=== PATIENT | female | born 1935 | race Caucasian/White ===

== ENCOUNTER 2018-10-15 17:14 | Observation (INO) | payer MEDICARE, BC ==
[2018-10-15] MEDS ORDERED: hydrALAZINE 20 MG/ML VIAL ONE (17:46)
[2018-10-15 18:25] LABS: Troponin I Less than 0.010 ng/mL (< 0.028)
[2018-10-15 21:20] LABS: Troponin I Less than 0.010 ng/mL (< 0.028)
[2018-10-15 21:24] VITALS: BMI 25.6
[2018-10-15] MEDS ORDERED: Ondansetron PF 4 MG/2 ML Vial IVP PRN (21:39)
[2018-10-15] MEDS ORDERED: Acetaminophen 650 MG Suppository PR PRN (21:39)
[2018-10-15] MEDS ORDERED: Acetaminophen 325 MG TAB PO PRN (21:39)
[2018-10-15] MEDS ORDERED: Ondansetron ODT 4 MG TAB PO PRN (21:39)
[2018-10-15 23:28] LABS: Troponin I Less than 0.010 ng/mL (< 0.028)
[2018-10-15] MEDS ORDERED: Gabapentin 300 MG CAP PO SCH (23:30)
[2018-10-15] MEDS ORDERED: Metoprolol Tartrate 50 MG TAB PO SCH (23:30)
[2018-10-16 05:44] LABS: #Basophils 0.1 thou/uL (0.0-0.2); #Eosinphils 0.1 thou/uL (0.0-0.7); #Lymphocytes 1.7 thou/uL (1.20-3.40); #Monocytes 0.7 thou/uL (0.11-0.59); #Neutrophils 4.2 thou/uL (1.40-6.50); %Eosinophils 1.3 % (0.0-10.0); %Lymphocytes 25.3 % (21.0-51.0); %Monocytes 10.9 % (0.0-10.0); %Neutrophils 61.5 % (42.0-75.0); Mean Corpuscular HGB CONC 32.9 g/dL (32.0-36.0); Mean Corpuscular Hemoglobin 30.1 pg (27.0-31.0); Mean Corpuscular Volume 91.7 fL (78.0-98.0); Mean Platelet Volume 9.4 fL (7.4-10.4); Platelet Count 245 thou/uL (130-400); RBC Distribution Width 13.5 % (11.5-14.5); Red Blood Cell (RBC) Count 3.66 mill/uL (4.20-5.40); White Blood Cell (WBC) Count 6.8 thou/uL (4.8-10.8)
[2018-10-16 06:10] LABS: Anion Gap 9 mmol/L (10-20); BUN (Urea Nitrogen) 27 mg/dL (9.8-20.1); Calc. Creatinine Clearance 38 mL/min (70-130); Calcium 8.5 mg/dL (7.8-10.44); Carbon Dioxide 27 mmol/L (23-31); Chloride 106 mmol/L (98-107); Estimated GFR-MDRD 42; Glucose 87 mg/dL (83-110); Potassium 4.3 mmol/L (3.5-5.1)
[2018-10-16 06:13] LABS: Sodium 138 mmol/L (136-145)
--- NOTE | 2018-10-16 08:00 | HP ---
PRIMARY CARE PHYSICIAN: Dr. Brian Varela. CODE STATUS: Full code. TIME OF EVALUATION: 8:45. CHIEF COMPLAINT: Chest pain. HISTORY OF PRESENT ILLNESS: An 83-year-old female patient with past medical history of lung cancer, kidney cancer, status post radiation and surgery, last treated in 2011, hyperlipidemia, hypertension, came to the hospital after having chest pain that was on and off with no clear triggers, no alleviating factors. The patient reported the pain radiates to the left arm, hand, symptoms were reported as 6/ 10. No significant associated symptoms. REVIEW OF SYSTEMS: CONSTITUTIONAL: No fever, chills, or generalized weakness. RESPIRATORY: No cough, sputum production, or shortness of breath. CARDIOVASCULAR: The patient has chest pain. No palpitation. GASTROINTESTINAL: No nausea, vomiting, or diarrhea or abdominal pain. CHEMICAL ENGINEERING TECHNICIAN: No dizziness, headache, or feeling lightheaded. GENITOURINARY: No burning on urination. EXTREMITIES: No leg swelling. All other systems were reviewed and negative except for the findings mentioned above. PAST MEDICAL HISTORY: As mentioned in HPI. PAST SURGICAL HISTORY: The patient has back surgery x2, appendectomy, hysterectomy; mastectomy, both breast. PSYCHIATRIC HISTORY: Depression. FAMILY HISTORY: Reviewed, noncontributory to current presentation. SOCIAL HISTORY: The patient quit smoking less than 10 years ago. No alcohol. No drug use. KNOWN ALLERGIES: Aspirin. REPORTED MEDICATIONS: 1. Caduet. 2. Lasix. 3. Metoprolol. 4. Platte. 5. Sertraline. 6. Neurontin. PHYSICAL EXAMINATION: VITAL SIGNS: On presentation, blood pressure 206/92, heart rate 63, respiratory rate was 18, temperature 97.6, pain 0/10, oxygen saturation was 96% on room air. GENERAL APPEARANCE: The patient is alert, oriented, not in acute distress. HEENT: Eyes, normal conjunctivae. Moist oral mucosa. Anicteric. No JVD. RESPIRATORY: Bilateral air entry. No rales. No wheezes. Symmetric expansion. CARDIOVASCULAR: Normal rate. Regular rhythm. No murmurs. No gallop. No edema. ABDOMEN: Soft. Normal bowel sounds. MUSCULOSKELETAL: Baseline range of motion and . SKIN: Warm. Intact. No pallor. No rash. No redness. Capillary refill seems to be intact. NEURO: No evidence of any new focal weakness. Cranial nerves seem to be intact. PSYCH: The patient is in good mood. No anxiety. Optimal judgment. LABORATORY DATA: EKG was reviewed. The patient has sinus bradycardia at the rate of 58 with VA 140, QRS 70, QT corrected 424. Chest x-ray was reviewed. The patient has fracture on the right 6th through 9th ribs, which are probably subacute. These were not present on prior study. Old left humeral neck injury. Apparent fracture of the medial left clavicle which is not clearly visible on the prior studies since the recent CT of the cervical spine showed a piece of this area and suggested some bony sclerosis and perhaps expansion. Further workup on this study was advised, CT of the region will be useful. Labs were reviewed. The patient has white count 7.1, hemoglobin 11.8, MCV 92.3, platelet count 287. PT 13.4, INR 1.0, PTT 31.4. D-dimer 0.52. Sodium 141, potassium 5, chloride 103, carbon dioxide 27, anion gap 16, BUN 27, creatinine 1.42. On previous admissions, the creatinine was 1.82. The GFR is 36, glucose 95. LFTs were negative. Troponin was negative. Lipase 37. Urine was negative. ASSESSMENT AND PLAN: The patient will be placed in the hospital for following medical problems: 1. Chest pain, rule out acute coronary syndrome. The patient has some rib fractures. The pain may be secondary to these fractures, however, there is only concern for underlying coronary artery disease in a patient with risk factors. We will monitor. We will do troponins. We will do stress test in the morning. 2. Chronic kidney disease. Monitor kidney function. We will treat accordingly. 3. Deep venous thrombosis prophylaxis. Job ID: [id number] [facility] HOSPITALDimitri
[2018-10-16] MEDS ORDERED: Enoxaparin Sodium 30 MG/0.3 ML SYRINGE SC SCH (09:00)
[2018-10-16] MEDS ORDERED: Gabapentin 300 MG CAP PO SCH (09:00)
[2018-10-16] MEDS ORDERED: Metoprolol Tartrate 50 MG TAB PO SCH (09:00)
--- NOTE | 2018-10-16 14:13 | NM ---
NM Cardiac Stress W EF WF History: [Chest pain. Hypertension and dyslipidemia.] Comparison: Nuclear medicine stress test 2011 Findings: Stress and rest performed after the intravenous administration of 30 and 9 mCi technetium 9 9m sestamibi, intravenously. Adequate left ventricular uptake of radiotracer. No scar or ischemia. Normal wall motion. Calculated ejection fraction of 79%. Impression: Normal nuclear medicine cardiac stress test and ejection fraction.
[2018-10-16 14:30] VITALS: TEMP 97.6
[2018-10-16] MEDS ORDERED: AMLODIPINE PO SCH (14:30)
[2018-10-16] MEDS ORDERED: ATORVASTATIN PO SCH (14:30)
[2018-10-16] MEDS ORDERED: Atorvastatin Calcium 10 MG TAB PO SCH (14:30)
[2018-10-16] MEDS ORDERED: Amlodipine 5 MG TAB PO SCH (14:30)
[2018-10-16 14:47] VITALS: BP 138/64
[2018-10-16] MEDS ORDERED: Regadenoson 0.4 MG/5 ML SYRINGE ONE (20:05)
--- NOTE | 2018-10-17 05:24 | DIS ---
DATE OF ADMISSION: 10/15/2018 DATE OF DISCHARGE: 10/16/2018 CHIEF COMPLAINT ON ADMISSION: Chest pain. FINAL DIAGNOSES: 1. Chest pain, noncardiac, acute coronary syndrome ruled out, stress test negative for reversible ischemia with normal ejection fraction. 2. Osteoporosis with subacute rib fractures and remote left humeral fracture. 3. Hypertension. 4. Gastroesophageal reflux disease. 5. Depression. BRIEF HOSPITAL COURSE: The patient is a pleasant 83-year-old female with past medical history significant for that stated above, who presented to the hospital with complaints of chest pain. She describes the pain as sharp and radiating to the left arm and rib cage area. She had no associated symptoms and denies shortness of breath, palpitations, dizziness, or diaphoresis. She presented to the [facility] for further workup and treatment. On arrival, EKG showed sinus rhythm with no acute ST or T-wave changes. The patient's serial troponin was negative x3. She was admitted for risk stratification and underwent a nuclear stress test, which was negative for reversible ischemia and showed normal EF. The patient states that all of her presenting symptoms have resolved. She feels well. She denies any further chest pain or shortness of breath. She had some brief nausea after her testing, but this did resolve. She has no complaints at this time. DISCHARGE DISPOSITION: Home. CONDITION AT DISCHARGE: Stable. DISCHARGE INSTRUCTIONS AND FOLLOWUP: The patient will be discharged home in good condition. She will continue her home medications with no modifications, which include her metoprolol tartrate 75 mg p.o. b.i.d., PPI, Caduet, Furosemide, and calcium and vitamin D supplements. She is also on sertraline 50 mg p.o. daily. She will follow up with her primary care physician, who is Dr. Varela. I advised her to discuss with him future testing including bone scan and treatments for osteoporosis. She will continue fall precautions. Job ID: [id number]
[2018-10-17] MEDS ORDERED: ATORVASTATIN PO SCH (09:00)
[2018-10-17] MEDS ORDERED: AMLODIPINE PO SCH (09:00)
--- NOTE | 2018-10-17 15:14 | EKG ---
Test Reason : Blood Pressure : / mmHG Vent. Rate : 058 BPM Atrial Rate : 058 BPM P-R Int : 140 ms QRS Dur : 070 ms QT Int : 432 ms P-R-T Axes : 024 004 032 degrees QTc Int : 424 ms Sinus bradycardia Otherwise normal ECG Confirmed by GHASSAN DAVIS ([id number]), desk editor AMITA JOHNSON ([id number]) on 10/17/2018 3:13:46 PM Referred By: Confirmed By:GHASSAN DAVIS
== END 2018-10-16 15:09 | disposition home or self-care (01) ==
LOC: ERS 17:14 → 2SW 19:02
PROVIDERS: ADMIT Hospitalist; ATTEND Hospitalist
DX: R07.9 Chest pain, unspecified (principal); M80.08XA Age-related osteoporosis with current pathological fracture, vertebra(e), initial encounter for fracture; M80.022A Age-related osteoporosis with current pathological fracture, left humerus, initial encounter for fracture; I12.9 Hypertensive chronic kidney disease with stage 1 through stage 4 chronic kidney disease, or unspecified chronic kidney disease; N18.9 Chronic kidney disease, unspecified; E78.5 Hyperlipidemia, unspecified; F32.9 Major depressive disorder, single episode, unspecified; Z79.899 Other long term (current) drug therapy; Z87.891 Personal history of nicotine dependence; Z88.8 Allergy status to other drugs, medicaments and biological substances
CPT/HCPCS: 78452; 80048; 84484; 85025; 93005; 93017; 94760; 96372; 96374; 99285; A9500; G0378 ×2; 36415; J0360; J1650; J2785

== ENCOUNTER 2022-04-04 23:28 | Inpatient (IN) | payer MEDICARE, BC ==
[2022-04-05] MEDS ORDERED: guaiFENesin 200 MG TAB PO PRN (08:14)
[2022-04-05] MEDS ORDERED: Benzonatate 100 MG CAP PO PRN (08:14)
[2022-04-05] MEDS ORDERED: Senokot S 8.6-50 MG TAB PO PRN (08:16)
[2022-04-05] MEDS ORDERED: Ondansetron ODT 4 MG TAB PO PRN (08:16)
[2022-04-05] MEDS ORDERED: Ondansetron PF 4 MG/2 ML Vial IVP PRN (08:16)
[2022-04-05] MEDS ORDERED: Acetaminophen 325 MG TAB PO PRN (08:16)
[2022-04-05 08:26] VITALS: BMI 24.0
[2022-04-05] MEDS ORDERED: Famotidine 20 MG TAB PO SCH (09:00)
[2022-04-05] MEDS ORDERED: Vancomycin Dose by Levels Sliding Scale (Wt <71) FS SCH (09:30)
[2022-04-05] MEDS: Enoxaparin Sodium 30 MG/0.3 ML SYRINGE SC SCH (09:38)
[2022-04-05] MEDS: Sodium Chloride 0.9% 1,000 ML IV SCH (09:39)
[2022-04-05] MEDS: cefTRIAXone\\ROCEPHIN 1 GM in Sodium Chloride 0.9% 100 ML IVPB SCH (09:39)
[2022-04-05] MEDS ORDERED: Vancomycin 1 GM in Premix Bag 1 BAG IVPB SCH (10:00)
[2022-04-05 10:24] LABS: #Basophils 0.1 thou/uL (0.0-0.2); #Lymphocytes 0.3 thou/uL (1.20-3.40); #Monocytes 0.5 thou/uL (0.11-0.59); #Neutrophils 10.3 thou/uL (1.40-6.50); %Basophils 1.1 % (0.0-1.0); %Eosinophils 0.1 % (0.0-10.0); %Lymphocytes 2.9 % (21.0-51.0); %Monocytes 4.6 % (0.0-10.0); %Neutrophils 91.4 % (42.0-75.0); Hemoglobin 9.6 g/dL (12.0-16.0); Mean Corpuscular Hemoglobin 30.9 pg (27.0-31.0); Mean Corpuscular Volume 96.8 fl (78.0-98.0); Mean Platelet Volume 9.3 fL (7.4-10.4); Platelet Count 186 10x3/uL (130-400); RBC Distribution Width 14.2 % (11.5-14.5); Red Blood Cell (RBC) Count 3.11 mill/uL (4.20-5.40); White Blood Cell (WBC) Count 11.3 10x3/uL (4.8-10.8)
[2022-04-05 10:43] LABS: Troponin I 0.017 ng/mL (< 0.028)
[2022-04-05 10:44] LABS: Anion Gap 13 mmol/L (10-20); BUN (Urea Nitrogen) 33 mg/dL (9.8-20.1); Calc. Creatinine Clearance 26 mL/min (70-130); Calcium 8.3 mg/dL (7.8-10.44); Carbon Dioxide 24 mmol/L (23-31); Chloride 104 mmol/L (98-107); Estimated GFR 32; Glucose 120 mg/dL (83-110); Potassium 4.6 mmol/L (3.5-5.1); Sodium 136 mmol/L (136-145)
[2022-04-05] MEDS ORDERED: Metoprolol Tartrate 50 MG TAB PO SCH (12:30)
[2022-04-05] MEDS ORDERED: Amlodipine 5 MG TAB PO SCH ×2 (12:30→23:45)
[2022-04-05 13:22] LABS: Legionella Urinary Ag Negative (Negative); Strep pneumo Urine Ag NEGATIVE (NEGATIVE)
[2022-04-05 13:45] LABS: Troponin I 0.019 ng/mL (< 0.028)
[2022-04-05] MEDS: Mometasone 200 MCG/Formoterol 5 MCG 120 PUFF INHALER INH SCH (18:39)
[2022-04-05] MEDS: Metoprolol Tartrate 50 MG TAB PO SCH (20:10)
[2022-04-05] MEDS: Gabapentin 300 MG CAP PO SCH (20:12)
[2022-04-05] MEDS: Calcium Carbonate + Vit D 250 MG TAB PO SCH (20:12)
[2022-04-06] MEDS: Sodium Chloride 0.9% 1,000 ML IV SCH (00:05)
[2022-04-06 05:06] LABS: #Eosinphils 0.1 thou/uL (0.0-0.7); #Lymphocytes 1.1 thou/uL (1.20-3.40); #Monocytes 0.8 thou/uL (0.11-0.59); %Basophils 0.1 % (0.0-1.0); %Eosinophils 1.7 % (0.0-10.0); %Lymphocytes 13.8 % (21.0-51.0); %Monocytes 9.8 % (0.0-10.0); %Neutrophils 74.6 % (42.0-75.0); Hemoglobin 9.6 g/dL (12.0-16.0); Mean Corpuscular HGB CONC 31.2 g/dL (32.0-36.0); Mean Corpuscular Hemoglobin 30.2 pg (27.0-31.0); Mean Corpuscular Volume 96.8 fl (78.0-98.0); Mean Platelet Volume 9.2 fL (7.4-10.4); Platelet Count 182 10x3/uL (130-400); RBC Distribution Width 14.3 % (11.5-14.5); Red Blood Cell (RBC) Count 3.19 mill/uL (4.20-5.40); White Blood Cell (WBC) Count 8.1 10x3/uL (4.8-10.8)
[2022-04-06 05:25] LABS: Anion Gap 11 mmol/L (10-20); BUN (Urea Nitrogen) 22 mg/dL (9.8-20.1); Calc. Creatinine Clearance 32 mL/min (70-130); Carbon Dioxide 25 mmol/L (23-31); Chloride 110 mmol/L (98-107); Estimated GFR 42; Glucose 96 mg/dL (83-110); Potassium 3.9 mmol/L (3.5-5.1); Sodium 142 mmol/L (136-145)
[2022-04-06] MEDS: Mometasone 200 MCG/Formoterol 5 MCG 120 PUFF INHALER INH SCH (06:48)
[2022-04-06] MEDS: Gabapentin 300 MG CAP PO SCH (08:10)
[2022-04-06] MEDS: Calcium Carbonate + Vit D 250 MG TAB PO SCH (08:10)
[2022-04-06] MEDS: Metoprolol Tartrate 50 MG TAB PO SCH (08:10)
[2022-04-06] MEDS: cefTRIAXone\\ROCEPHIN 1 GM in Sodium Chloride 0.9% 100 ML IVPB SCH (08:11)
[2022-04-06] MEDS: Enoxaparin Sodium 30 MG/0.3 ML SYRINGE SC SCH (08:12)
[2022-04-06 08:30] VITALS: BP 202/88; TEMP 97.3
[2022-04-06] MEDS ORDERED: Atorvastatin Calcium 10 MG TAB PO SCH (09:00)
[2022-04-06] MEDS ORDERED: Amlodipine 5 MG TAB PO SCH (09:00)
[2022-04-06] MEDS ORDERED: Calcitriol 0.25 MCG CAP PO SCH (09:00)
[2022-04-06] MEDS ORDERED: Sertraline 100 MG TAB PO SCH (09:00)
[2022-04-06 09:18] LABS: Vancomycin, Random 9.7 ug/mL (See Comment)
[2022-04-06] MEDS ORDERED: hydrALAZINE 20 MG/ML VIAL SLOW IVP PRN (09:19)
[2022-04-06] MEDS ORDERED: Vancomycin HCl 750 MG in Sodium Chloride 0.9% 250 ML 250 ML IVPB SCH (11:00)
== END 2022-04-06 11:00 | disposition home or self-care (01) | DRG 871 ==
LOC: 2SW 04-05 03:24
PROVIDERS: ADMIT Student in an Organized Health Care Education/Training Program; ATTEND Family Medicine
DX: A41.9 Sepsis, unspecified organism (principal); J15.9 Unspecified bacterial pneumonia; N17.9 Acute kidney failure, unspecified; E78.5 Hyperlipidemia, unspecified; G62.0 Drug-induced polyneuropathy; D72.828 Other elevated white blood cell count; I12.9 Hypertensive chronic kidney disease with stage 1 through stage 4 chronic kidney disease, or unspecified chronic kidney disease; Z20.822 Contact with and (suspected) exposure to COVID-19; N18.30 Chronic kidney disease, stage 3 unspecified; T45.1X5A Adverse effect of antineoplastic and immunosuppressive drugs, initial encounter; Z90.2 Acquired absence of lung [part of]; Z90.710 Acquired absence of both cervix and uterus; Z98.890 Other specified postprocedural states; Z88.8 Allergy status to other drugs, medicaments and biological substances; Z79.899 Other long term (current) drug therapy; Z90.13 Acquired absence of bilateral breasts and nipples; Z85.118 Personal history of other malignant neoplasm of bronchus and lung; Z85.53 Personal history of malignant neoplasm of renal pelvis; Z85.3 Personal history of malignant neoplasm of breast; Z92.21 Personal history of antineoplastic chemotherapy; Z92.3 Personal history of irradiation; R77.8 Other specified abnormalities of plasma proteins
CPT/HCPCS: 36415; 80048; 80202; 83605; 84145; 84484; 85025; 87040; 87070; 87081; 87205; 87449; 87899; J0360; J0696; J1650; J3370; J3490; J7050; J7620

== ENCOUNTER 2023-10-11 09:14 | Inpatient (IN) | payer MEDICARE, BC ==
[2023-10-11] MEDS ORDERED: Morphine 4 MG/ML VIAL ONE ×2 (10:17→15:05)
[2023-10-11 10:24] LABS: #Basophils Less than 0.03 10x3/uL (0.0-0.2); #Eosinphils Less than 0.03 10x3/uL (0.0-0.7); %Basophils 0.1 % (0.0-1.0); %Lymphocytes 3.4 % (21.0-51.0); %Monocytes 7.2 % (0.0-10.0); %Neutrophils 88.7 % (42.0-75.0); Hematocrit 26.9 % (36.0-47.0); Hemoglobin 8.9 g/dL (12.0-16.0); Mean Corpuscular HGB CONC 33.1 g/dL (32.0-36.0); Mean Corpuscular Hemoglobin 26.8 pg (27.0-31.0); Mean Platelet Volume 9.2 fL (7.4-10.4); Platelet Count 373 10x3/uL (130-400); RBC Distribution Width 17.7 % (11.5-14.5); Red Blood Cell (RBC) Count 3.32 mill/uL (4.20-5.40)
[2023-10-11 10:44] LABS: INR-International Normal Ratio 1.1; Prothrombin Time 14.5 sec (12.0-14.7)
[2023-10-11 10:45] LABS: PTT 35.2 sec (22.9-36.1)
[2023-10-11 10:48] LABS: ALT (SGPT) 12 U/L (8-55); AST (SGOT) 15 U/L (5-34); Albumin 2.5 g/dL (3.4-4.8); Alkaline Phosphatase 62 U/L (40-110); Anion Gap 15 mmol/L (10-20); BUN (Urea Nitrogen) 22 mg/dL (9.8-20.1); Bilirubin, Total 0.5 mg/dL (0.2-1.2); Calc. Creatinine Clearance 0 mL/min (70-130); Calcium 9.5 mg/dL (7.8-10.44); Carbon Dioxide 23 mmol/L (23-31); Chloride 97 mmol/L (98-107); Estimated GFR 32; Globulin 3.8 g/dL (2.4-3.5); Glucose 119 mg/dL (83-110); Protein, Total 6.3 g/dL (5.8-8.1); Sodium 131 mmol/L (136-145)
[2023-10-11] MEDS ORDERED: Iopamidol-370 76% 500 ML MDV (1 ML CHARGE) ONE (12:53)
[2023-10-11] MEDS ORDERED: Azithromycin 500 MG VIAL ONE (14:11)
[2023-10-11] MEDS ORDERED: cefTRIAXone (ROCEPHIN) 2 GM VIAL ONE (14:11)
[2023-10-11] MEDS ORDERED: Sodium Chloride 0.9% 100 ML ONE (14:11)
[2023-10-11] MEDS ORDERED: Acetaminophen 650 MG Suppository PR PRN (17:06)
[2023-10-11] MEDS ORDERED: Ondansetron PF 4 MG/2 ML Vial IVP PRN (17:06)
[2023-10-11] MEDS ORDERED: Ondansetron ODT 4 MG TAB PO PRN (17:06)
[2023-10-11] MEDS ORDERED: Albuterol 2.5 MG (3 mL) NEB NEB PRN (17:10)
[2023-10-11] MEDS ORDERED: Benzonatate 100 MG CAP PO PRN (17:11)
[2023-10-11 17:47] VITALS: BMI 23.0
[2023-10-11] MEDS: Acetaminophen 325 MG TAB PO PRN (18:18)
[2023-10-11] MEDS: Lidocaine 4% Patch TD SCH (18:18)
[2023-10-11] MEDS: Ipratropium/Albuterol 3 ML NEB NEB SCH (18:37)
[2023-10-11] MEDS: Gabapentin 300 MG CAP PO SCH (21:19)
[2023-10-11] MEDS: Famotidine 20 MG TAB PO SCH (21:19)
[2023-10-11] MEDS: guaiFENesin ER 600 MG TAB PO SCH (21:19)
[2023-10-11] MEDS: Cefepime 1 GM in Sodium Chloride 0.9% 100 ML IVPB SCH (21:23)
[2023-10-11] MEDS: methylPREDNISolone Sod Succ 40 MG VIAL IVP SCH (21:24)
[2023-10-12 03:12] LABS: Legionella Urinary Ag Negative (Negative); Strep pneumo Urine Ag NEGATIVE (NEGATIVE)
[2023-10-12] MEDS: Transdermal Patch Removal TOP SCH ×2 (06:05→21:35)
[2023-10-12 07:02] LABS: #Basophils Less than 0.03 10x3/uL (0.0-0.2); #Eosinphils Less than 0.03 10x3/uL (0.0-0.7); %Basophils 0.1 % (0.0-1.0); %Lymphocytes 1.8 % (21.0-51.0); %Monocytes 1.2 % (0.0-10.0); %Neutrophils 96.3 % (42.0-75.0); Hematocrit 27.2 % (36.0-47.0); Hemoglobin 8.4 g/dL (12.0-16.0); Mean Corpuscular HGB CONC 30.9 g/dL (32.0-36.0); Mean Corpuscular Hemoglobin 27.6 pg (27.0-31.0); Mean Corpuscular Volume 89.5 fL (78.0-98.0); Mean Platelet Volume 9.3 fL (7.4-10.4); Platelet Count 375 10x3/uL (130-400); RBC Distribution Width 17.5 % (11.5-14.5); Red Blood Cell (RBC) Count 3.04 mill/uL (4.20-5.40)
[2023-10-12 07:35] LABS: ALT (SGPT) 6 U/L (8-55); AST (SGOT) 16 U/L (5-34); Albumin 2.4 g/dL (3.4-4.8); Alkaline Phosphatase 67 U/L (40-110); Anion Gap 17 mmol/L (10-20); BUN (Urea Nitrogen) 26 mg/dL (9.8-20.1); Bilirubin, Total 0.2 mg/dL (0.2-1.2); Calc. Creatinine Clearance 22 mL/min (70-130); Carbon Dioxide 21 mmol/L (23-31); Chloride 97 mmol/L (98-107); Estimated GFR 29; Glucose 152 mg/dL (83-110); Potassium 4.8 mmol/L (3.5-5.1); Protein, Total 6.4 g/dL (5.8-8.1); Sodium 130 mmol/L (136-145)
[2023-10-12] MEDS: Sertraline 100 MG TAB PO SCH (08:33)
[2023-10-12] MEDS: Lactated Ringer's 1,000 ML IV SCH (08:34)
[2023-10-12] MEDS ORDERED: Sertraline 100 MG TAB PO SCH (09:00)
[2023-10-12] MEDS ORDERED: Non-Formulary Item 1 EACH (Fluticasone Propion/Salmeterol [Advair Diskus 250/50] 1 EACH B INH SCH (09:00)
[2023-10-12] MEDS: Lidocaine 4% Patch TD SCH ×2 (10:37→10:52)
[2023-10-12] MEDS: Azithromycin 500 MG in Sodium Chloride 0.9% 250 ML 250 ML IVPB SCH (16:44)
[2023-10-12] MEDS: Mometasone 200 MCG/Formoterol 5 MCG 120 PUFF INHALER INH SCH (18:51)
[2023-10-12] MEDS: Morphine 2 MG/ML VIAL SLOW IVP PRN (21:53)
[2023-10-13] MEDS ORDERED: Ipratropium/Albuterol 3 ML NEB ONE (08:32)
[2023-10-13] MEDS: Metoprolol Tartrate 50 MG TAB PO SCH (09:28)
[2023-10-13] MEDS ORDERED: Docusate 100 MG CAP PO PRN (12:56)
[2023-10-13] MEDS: Polyethylene Glycol 3350 17 GM Packet PO SCH (13:18)
[2023-10-13] MEDS: Docusate 100 MG CAP PO SCH (13:19)
[2023-10-13 15:40] VITALS: BMI 23.0
[2023-10-13] MEDS: metroNIDAZOLE 500 MG in Premix 1 BAG IVPB SCH (18:40)
[2023-10-14] MEDS: metroNIDAZOLE 500 MG in Premix 1 BAG IVPB SCH
[2023-10-14 05:37] LABS: Hematocrit 27.3 % (36.0-47.0); Hemoglobin 8.8 g/dL (12.0-16.0); Mean Corpuscular HGB CONC 32.2 g/dL (32.0-36.0); Mean Corpuscular Hemoglobin 26.4 pg (27.0-31.0); Mean Platelet Volume 9.3 fL (7.4-10.4); Platelet Count 559 10x3/uL (130-400); RBC Distribution Width 17.6 % (11.5-14.5); Red Blood Cell (RBC) Count 3.33 mill/uL (4.20-5.40)
[2023-10-14 06:03] LABS: Anion Gap 17 mmol/L (10-20); BUN (Urea Nitrogen) 33 mg/dL (9.8-20.1); Calc. Creatinine Clearance 25 mL/min (70-130); Calcium 8.4 mg/dL (7.8-10.44); Carbon Dioxide 20 mmol/L (23-31); Chloride 98 mmol/L (98-107); Estimated GFR 33; Glucose 128 mg/dL (83-110); Potassium 4.5 mmol/L (3.5-5.1); Sodium 130 mmol/L (136-145)
[2023-10-14] MEDS: Lidocaine 4% Patch TD SCH (10:17)
[2023-10-14] MEDS: Bisacodyl 10 MG SUPP PR SCH (11:52)
[2023-10-14] MEDS: methylPREDNISolone Sod Succ 40 MG VIAL IVP SCH (21:32)
[2023-10-16] MEDS: Morphine 4 MG/ML VIAL SLOW IVP PRN (01:01)
[2023-10-16 07:18] LABS: #Basophils Less than 0.03 10x3/uL (0.0-0.2); #Eosinphils Less than 0.03 10x3/uL (0.0-0.7); %Basophils 0.1 % (0.0-1.0); %Monocytes 7.2 % (0.0-10.0); Hematocrit 28.4 % (36.0-47.0); Mean Corpuscular HGB CONC 31.7 g/dL (32.0-36.0); Mean Corpuscular Hemoglobin 27.1 pg (27.0-31.0); Mean Corpuscular Volume 85.5 fL (78.0-98.0); Mean Platelet Volume 8.8 fL (7.4-10.4); Platelet Count 508 10x3/uL (130-400); RBC Distribution Width 18.2 % (11.5-14.5); Red Blood Cell (RBC) Count 3.32 mill/uL (4.20-5.40)
[2023-10-16 07:58] LABS: Anion Gap 14 mmol/L (10-20); BUN (Urea Nitrogen) 34 mg/dL (9.8-20.1); Calc. Creatinine Clearance 31 mL/min (70-130); Calcium 7.6 mg/dL (7.8-10.44); Carbon Dioxide 23 mmol/L (23-31); Chloride 106 mmol/L (98-107); Estimated GFR 44; Glucose 101 mg/dL (83-110); Potassium 4.7 mmol/L (3.5-5.1); Sodium 138 mmol/L (136-145)
[2023-10-16] MEDS: Acetaminophen 650 MG/20.3 ML UDCUP PO PRN (09:08)
[2023-10-16] MEDS: Lorazepam 2 MG/ML VIAL SLOW IVP SCH (14:41)
[2023-10-16] MEDS: cefTRIAXone\\ROCEPHIN 2 GM in Sodium Chloride 0.9% 100 ML IVPB SCH (21:40)
[2023-10-17 05:25] LABS: #Basophils Less than 0.03 10x3/uL (0.0-0.2); %Basophils 0.1 % (0.0-1.0); %Eosinophils 0.6 % (0.0-10.0); %Lymphocytes 8.3 % (21.0-51.0); %Monocytes 9.7 % (0.0-10.0); Hematocrit 29.4 % (36.0-47.0); Hemoglobin 9.1 g/dL (12.0-16.0); Mean Corpuscular Hemoglobin 26.8 pg (27.0-31.0); Mean Corpuscular Volume 86.5 fL (78.0-98.0); Mean Platelet Volume 8.8 fL (7.4-10.4); Platelet Count 566 10x3/uL (130-400); RBC Distribution Width 18.3 % (11.5-14.5)
[2023-10-17 05:42] LABS: Anion Gap 14 mmol/L (10-20); BUN (Urea Nitrogen) 28 mg/dL (9.8-20.1); Calc. Creatinine Clearance 31 mL/min (70-130); Calcium 7.8 mg/dL (7.8-10.44); Carbon Dioxide 25 mmol/L (23-31); Chloride 106 mmol/L (98-107); Estimated GFR 43; Glucose 91 mg/dL (83-110); Potassium 4.4 mmol/L (3.5-5.1); Sodium 141 mmol/L (136-145)
[2023-10-17] MEDS: predniSONE 20 MG TAB PO SCH (08:35)
[2023-10-18] MEDS: Senokot S 8.6-50 MG TAB PO PRN (08:11)
[2023-10-18] MEDS: Polyethylene Glycol 3350 17 GM Packet PO PRN (08:11)
[2023-10-18 10:51] VITALS: BP 178/92; TEMP 97.8
== END 2023-10-18 10:54 | disposition swing bed (61) | DRG 193 ==
LOC: ERS 09:14 → T4-A 15:21
PROVIDERS: ADMIT Internal Medicine; ATTEND Hospitalist
DX: J18.9 Pneumonia, unspecified organism (principal); J96.21 Acute and chronic respiratory failure with hypoxia; C34.90 Malignant neoplasm of unspecified part of unspecified bronchus or lung; S22.41XA Multiple fractures of ribs, right side, initial encounter for closed fracture; J90 Pleural effusion, not elsewhere classified; E87.1 Hypo-osmolality and hyponatremia; E78.5 Hyperlipidemia, unspecified; G62.0 Drug-induced polyneuropathy; Z66 Do not resuscitate; R53.81 Other malaise; M51.16 Intervertebral disc disorders with radiculopathy, lumbar region; D63.1 Anemia in chronic kidney disease; I12.9 Hypertensive chronic kidney disease with stage 1 through stage 4 chronic kidney disease, or unspecified chronic kidney disease; N18.30 Chronic kidney disease, stage 3 unspecified; T50.905A Adverse effect of unspecified drugs, medicaments and biological substances, initial encounter; W18.30XA Fall on same level, unspecified, initial encounter; Z85.3 Personal history of malignant neoplasm of breast; Z90.13 Acquired absence of bilateral breasts and nipples; Z90.710 Acquired absence of both cervix and uterus; Z98.890 Other specified postprocedural states; Z87.891 Personal history of nicotine dependence; Z79.82 Long term (current) use of aspirin; Z79.2 Long term (current) use of antibiotics; Z79.899 Other long term (current) drug therapy
CPT/HCPCS: 36415; 70551; 71045; 71260; 74177; 74230; 80048; 80053; 83605; 85025; 85027; 85610; 85730; 87040; 87449; 87899; 93005; 93306; 94640; 94760; 96361; 96365; 96367; 96375; 96376; J0456; J0692; J0696; J2060; J2270; J2272; J2920; J3490; J7050; J7120; J7512; J7620; Q9967

== ENCOUNTER 2024-04-18 15:18 | Inpatient (IN) | payer MEDICARE, BC ==
[2024-04-18 15:56] LABS: #Basophils 0.07 10x3/uL (0.0-0.2); %Basophils 0.7 % (0.0-1.0); %Eosinophils 2.6 % (0.0-10.0); %Lymphocytes 11.5 % (21.0-51.0); %Neutrophils 78.9 % (42.0-75.0); Hematocrit 39.8 % (36.0-47.0); Hemoglobin 12.8 g/dL (12.0-16.0); Mean Corpuscular HGB CONC 32.2 g/dL (32.0-36.0); Mean Corpuscular Volume 96.4 fL (78.0-98.0); Mean Platelet Volume 10.9 fL (7.4-10.4); Platelet Count 317 10x3/uL (130-400); Red Blood Cell (RBC) Count 4.13 mill/uL (4.20-5.40)
[2024-04-18] MEDS ORDERED: Magnesium 2 GM/50 ML BAG (IN WATER) ONE (16:02)
[2024-04-18 16:11] LABS: INR-International Normal Ratio 1.1; Prothrombin Time 13.9 sec (12.0-14.7)
[2024-04-18] MEDS ORDERED: Ipratropium/Albuterol 3 ML NEB ONE (16:11)
[2024-04-18 16:12] LABS: ALT (SGPT) 18 U/L (8-55); AST (SGOT) 16 U/L (5-34); Albumin 3.7 g/dL (3.4-4.8); Alkaline Phosphatase 44 U/L (40-110); Anion Gap 16 mmol/L (10-20); BUN (Urea Nitrogen) 48 mg/dL (9.8-20.1); Bilirubin, Total 0.4 mg/dL (0.2-1.2); Calc. Creatinine Clearance 0 mL/min (70-130); Calcium 9.6 mg/dL (7.8-10.44); Carbon Dioxide 19 mmol/L (23-31); Chloride 110 mmol/L (98-107); Estimated GFR 28; Globulin 3.8 g/dL (2.4-3.5); Glucose 120 mg/dL (83-110); Magnesium 2.3 mg/dL (1.6-2.6); Potassium 4.8 mmol/L (3.5-5.1); Protein, Total 7.5 g/dL (5.8-8.1); Sodium 140 mmol/L (136-145)
[2024-04-18 16:17] LABS: Troponin I 0.019 ng/mL (< 0.028)
[2024-04-18] MEDS ORDERED: cefTRIAXone (ROCEPHIN) 1 GM VIAL ONE (18:30)
[2024-04-18] MEDS ORDERED: Azithromycin 500 MG VIAL ONE (18:30)
[2024-04-18] MEDS ORDERED: Sodium Chloride 0.9% 100 ML ONE (18:30)
[2024-04-18] MEDS ORDERED: Acetaminophen 650 MG Suppository PR PRN (18:44)
[2024-04-18] MEDS ORDERED: Ondansetron ODT 4 MG TAB PO PRN (18:44)
[2024-04-18] MEDS ORDERED: Ondansetron PF 4 MG/2 ML Vial IVP PRN (18:44)
[2024-04-18] MEDS ORDERED: Ipratropium/Albuterol 3 ML NEB NEB PRN (18:54)
[2024-04-18] MEDS: Gabapentin 300 MG CAP PO SCH (22:31)
[2024-04-18] MEDS: Metoprolol Tartrate 50 MG TAB PO SCH (22:31)
[2024-04-18] MEDS: methylPREDNISolone Sod Succ 40 MG VIAL IVP SCH (22:32)
[2024-04-18] MEDS: Ipratropium/Albuterol 3 ML NEB NEB SCH (22:44)
[2024-04-19] MEDS: LevoFLOXacin 750 mg/D5W 750 MG in Premix 1 BAG IVPB SCH (01:07)
[2024-04-19 04:47] LABS: #Basophils Less than 0.03 10x3/uL (0.0-0.2); #Eosinophils Less than 0.03 10x3/uL (0.0-0.7); %Basophils 0.2 % (0.0-1.0); %Lymphocytes 7.2 % (21.0-51.0); %Neutrophils 90.2 % (42.0-75.0); Hematocrit 34.5 % (36.0-47.0); Hemoglobin 11.2 g/dL (12.0-16.0); Mean Corpuscular HGB CONC 32.5 g/dL (32.0-36.0); Mean Corpuscular Hemoglobin 31.2 pg (27.0-31.0); Mean Corpuscular Volume 96.1 fL (78.0-98.0); Mean Platelet Volume 11.3 fL (7.4-10.4); Platelet Count 265 10x3/uL (130-400); RBC Distribution Width 13.8 % (11.5-14.5); Red Blood Cell (RBC) Count 3.59 mill/uL (4.20-5.40)
[2024-04-19 04:54] LABS: Anion Gap 14 mmol/L (10-20); BUN (Urea Nitrogen) 46 mg/dL (9.8-20.1); Calc. Creatinine Clearance 18 mL/min (70-130); Calcium 8.5 mg/dL (7.8-10.44); Carbon Dioxide 20 mmol/L (23-31); Chloride 108 mmol/L (98-107); Estimated GFR 29; Glucose 178 mg/dL (83-110); Potassium 4.8 mmol/L (3.5-5.1); Sodium 137 mmol/L (136-145)
[2024-04-19] MEDS: Mometasone 200 MCG/Formoterol 5 MCG 120 PUFF INHALER INH SCH (07:59)
[2024-04-19] MEDS ORDERED: ATORVASTATIN PO SCH (09:00)
[2024-04-19] MEDS ORDERED: AMLODIPINE PO SCH (09:00)
[2024-04-19] MEDS ORDERED: [UNRECOGNIZED DRUG - OTHER] PO SCH (09:00)
[2024-04-19] MEDS ORDERED: traMADol HCl 50 MG TAB PO PRN (09:31)
[2024-04-19] MEDS: Enoxaparin 30 MG (0.3 mL) SYRINGE SC SCH (10:44)
[2024-04-19] MEDS: Sertraline 100 MG TAB PO SCH (10:45)
[2024-04-19] MEDS: CO Q-10 CAPSULE 100 MG PO SCH (10:45)
[2024-04-19] MEDS: Amlodipine 5 MG TAB PO SCH (10:45)
[2024-04-19] MEDS: Atorvastatin Calcium 10 MG TAB PO SCH (10:45)
[2024-04-19] MEDS: Pantoprazole DR 40 MG TAB PO SCH (10:45)
[2024-04-19] MEDS: Calcium Carbonate 500 MG ChewTAB PO PRN (12:20)
[2024-04-19 13:46] LABS: Influenza A by NAA Not Detected (NotDetected); Influenza B by NAA Not Detected (NotDetected); RSV by NAA Not Detected (NotDetected); SARS-CoV-2 NAA Rapid Test Not Detected (NotDetected)
[2024-04-19] MEDS: Acetaminophen 325 MG TAB PO PRN (21:23)
[2024-04-19] MEDS: Mirtazapine 15 MG TAB PO SCH (21:24)
[2024-04-20] MEDS ORDERED: traMADol HCl 50 MG TAB PO PRN (07:29)
[2024-04-20] MEDS ORDERED: Non-Formulary Item 1 EACH (Tiotropium [Spiriva Handihaler] 18 MCG Box) INH SCH (09:00)
[2024-04-20] MEDS: Atorvastatin Calcium 10 MG TAB PO SCH (09:00)
[2024-04-20] MEDS: Calcitriol 0.25 MCG CAP PO SCH (09:00)
[2024-04-20] MEDS: Sertraline 25 MG TAB PO SCH (09:01)
[2024-04-20 16:43] VITALS: BP 147/66; TEMP 97.6
[2024-04-20] MEDS ORDERED: LevoFLOXacin 500 mg/D5W 500 MG in Premix 1 BAG IVPB SCH (23:59)
== END 2024-04-20 17:45 | disposition home or self-care (01) | DRG 205 ==
LOC: ERS 15:18 → SUATTDRO 15:18 → 2NO 18:42
PROVIDERS: ADMIT Family Medicine; ATTEND Internal Medicine
DX: J70.0 Acute pulmonary manifestations due to radiation (principal); J96.01 Acute respiratory failure with hypoxia; J44.1 Chronic obstructive pulmonary disease with (acute) exacerbation; N17.9 Acute kidney failure, unspecified; N18.4 Chronic kidney disease, stage 4 (severe); I13.0 Hypertensive heart and chronic kidney disease with heart failure and stage 1 through stage 4 chronic kidney disease, or unspecified chronic kidney disease; I50.30 Unspecified diastolic (congestive) heart failure; Z88.8 Allergy status to other drugs, medicaments and biological substances; E78.5 Hyperlipidemia, unspecified; Z90.49 Acquired absence of other specified parts of digestive tract; Z90.710 Acquired absence of both cervix and uterus; D50.9 Iron deficiency anemia, unspecified; Z66 Do not resuscitate; Z79.899 Other long term (current) drug therapy
CPT/HCPCS: 0241U; 36415; 71045; 71250; 78451; 80048; 80053; 83605; 83735; 83880; 84145; 84443; 84484; 85025; 85379; 85610; 85730; 87040; 87428; 93005; 93970; 94640; 94664; 96374; 96375; A9540; J0456; J0696; J1650; J1956; J2919; J3475; J7620

== ENCOUNTER 2025-01-06 12:07 | Outpatient (CLI) | payer BC, MEDICARE | END 2025-01-06 12:08 | disposition home or self-care (01) | LOC: BICMAMMO 12:07 | PROVIDERS: ATTEND Nurse Practitioner Adult Health | DX: M85.88 Other specified disorders of bone density and structure, other site (principal); M81.0 Age-related osteoporosis without current pathological fracture | CPT/HCPCS: 77080 ==

== ENCOUNTER 2025-03-31 14:40 | Inpatient (IN) | payer MEDICARE, BC ==
[2025-03-31] MEDS ORDERED: Acetaminophen 325 MG TAB PO PRN (18:43)
[2025-03-31 18:44] VITALS: BMI 22.4
[2025-04-01 04:46] LABS: #Basophils 0.04 10x3/uL (0.0-0.2); #Eosinophils 0.45 10x3/uL (0.0-0.7); #Monocytes 0.72 10x3/uL (0.11-0.59); #Neutrophils 4.53 10x3/uL (1.40-6.50); %Basophils 0.5 % (0.0-1.0); %Eosinophils 6.0 % (0.0-10.0); %Lymphocytes 23.9 % (21.0-51.0); %Monocytes 9.5 % (0.0-10.0); %Neutrophils 60.0 % (42.0-75.0); Hematocrit 32.3 % (36.0-47.0); Hemoglobin 10.3 g/dL (12.0-16.0); Mean Corpuscular Hemoglobin 30.7 pg (27.0-31.0); Mean Corpuscular Volume 96.1 fL (78.0-98.0); Platelet Count 200 10x3/uL (130-400); Red Blood Cell (RBC) Count 3.36 mill/uL (4.20-5.40); White Blood Cell (WBC) Count 7.56 10x3/uL (4.8-10.8)
[2025-04-01 05:14] LABS: ALT (SGPT) 7 U/L (Less than 34); AST (SGOT) 17 U/L (11-34); Albumin 3.5 g/dL (3.1-4.5); Alkaline Phosphatase 41 U/L (40-110); Anion Gap 13 mmol/L (10-20); BUN (Urea Nitrogen) 34 mg/dL (9.8-20.1); Bilirubin, Total 0.3 mg/dL (0.3-1.2); Calc. Creatinine Clearance 18 mL/min (70-130); Calcium 8.9 mg/dL (7.8-10.44); Carbon Dioxide 26 mmol/L (23-31); Chloride 104 mmol/L (98-107); Globulin 2.6 g/dL (2.4-3.5); Glucose 84 mg/dL (83-110); Magnesium 2.0 mg/dL (1.6-2.6); Potassium 3.9 mmol/L (3.5-5.1); Sodium 139 mmol/L (136-145)
[2025-04-01] MEDS ORDERED: HYDROcodone/Acetaminophen 5/325 mg Tablet PO PRN (08:03)
[2025-04-01] MEDS ORDERED: Albuterol 200 PUFF INH INH PRN (08:11)
[2025-04-01] MEDS ORDERED: Losartan 25 MG TAB PO SCH (09:00)
[2025-04-01] MEDS ORDERED: NIFEdipine XL 30 MG ER.TAB PO SCH (09:00)
[2025-04-01] MEDS: Calcitriol 0.25 MCG CAP PO SCH (11:00)
[2025-04-01] MEDS: Metoprolol Succinate XL 50 MG ER.TAB PO SCH (11:01)
[2025-04-01] MEDS: Sertraline 25 MG TAB PO SCH (11:02)
[2025-04-01] MEDS: Calcium Carbonate 600 MG + Vit D TAB PO SCH (11:02)
[2025-04-01] MEDS: Gabapentin 300 MG CAP PO SCH (11:02)
[2025-04-01] MEDS: Mometasone 100 MCG/Formoterol 5 MCG 120 PUFF INHALER INH SCH (19:16)
[2025-04-01] MEDS: Spironolactone 25 MG TAB PO SCH (21:17)
[2025-04-02] MEDS: Spironolactone 25 MG TAB PO SCH (10:35)
[2025-04-02 12:32] VITALS: BP 177/75; TEMP 98.4
== END 2025-04-02 14:24 | disposition home or self-care (01) | DRG 291 ==
LOC: 2NO 17:19
PROVIDERS: ADMIT Internal Medicine; ATTEND Internal Medicine
DX: I13.0 Hypertensive heart and chronic kidney disease with heart failure and stage 1 through stage 4 chronic kidney disease, or unspecified chronic kidney disease (principal); I50.33 Acute on chronic diastolic (congestive) heart failure; N18.4 Chronic kidney disease, stage 4 (severe); E78.5 Hyperlipidemia, unspecified; J44.9 Chronic obstructive pulmonary disease, unspecified; Z79.82 Long term (current) use of aspirin; Z79.899 Other long term (current) drug therapy; Z87.891 Personal history of nicotine dependence
CPT/HCPCS: 36415; 80053; 83735; 84443; 84484; 85025; 93306; 94640; 94664; J2919; J7626